=== PATIENT | female | born 2000 | race Two or more races ===

== ENCOUNTER 2024-02-16 08:00 | Outpatient (CLI) | payer BC, OTHER | END 2024-02-16 23:59 | disposition home or self-care (01) | LOC: LAB.WCP 08:00 | PROVIDERS: ATTEND Physician Assistant | DX: F90.9 Attention-deficit hyperactivity disorder, unspecified type (principal); Z79.899 Other long term (current) drug therapy | CPT/HCPCS: 80324; 80359; 81599 ==